=== PATIENT | female | born 1965 | race Caucasian/White ===

== ENCOUNTER 2019-04-13 20:25 | Observation (INO) | payer MEDICARE, OTHER ==
[2019-04-13] MEDS ORDERED: Acetaminophen 500 MG TAB ONE (21:23)
[2019-04-13 23:18] VITALS: BMI 31.5
[2019-04-13] MEDS ORDERED: PREGABALIN 200 MG PO SCH (23:45)
[2019-04-13] MEDS ORDERED: tiZANidine HCl 4 MG TAB PO PRN (23:52)
[2019-04-13] MEDS ORDERED: Non-Formulary Item 1 EACH (Acetaminophen With Codeine [Tylenol With Codeine #4] 1 TABLET) PO PRN (23:52)
[2019-04-14] MEDS ORDERED: Pregabalin 75 MG CAP PO SCH ×2 (00:30→21:00)
[2019-04-14 01:11] LABS: Troponin I Less than 0.010 ng/mL (< 0.028)
[2019-04-14] MEDS ORDERED: Amitriptyline HCl 25 MG TAB PO SCH ×2 (01:15→21:00)
[2019-04-14] MEDS ORDERED: Ondansetron PF 4 MG/2 ML Vial IVP PRN (02:55)
[2019-04-14] MEDS ORDERED: Ondansetron ODT 4 MG TAB PO PRN (02:55)
[2019-04-14] MEDS ORDERED: Acetaminophen 650 MG Suppository PR PRN (02:55)
--- NOTE | 2019-04-14 04:28 | HP ---
PRIMARY CARE DOCTOR: Danyelle Orozco. CODE STATUS: Full code. TIME OF EVALUATION: 2:45 a.m. CHIEF COMPLAINT: Chest pain. HISTORY OF PRESENT ILLNESS: This is a 54-year-old female patient, with past medical history of diabetes type 2, hypertension, glaucoma, hyperlipidemia, hep C, RA, chronic back pain, kidney stones, left kidney tumor, left breast tumor, lymph node tumor, came to the hospital after having chest pain that was in the left shoulder with no clear triggers, no alleviating factors. Pain is 5/10, might become severe when is on, it just get better by itself. No significant symptoms associated. REVIEW OF SYSTEMS: CONSTITUTIONAL: No fever, chills, or generalized weakness. RESPIRATORY: No cough, sputum production, or shortness of breath. CARDIOVASCULAR: Chest pain. No palpitation. GASTROINTESTINAL: No nausea. No vomiting, diarrhea, or abdominal pain. 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 GENITOURINARY: No burning on urination. EXTREMITIES: No leg swelling. All other systems were reviewed and negative except for the findings mentioned above. PAST MEDICAL HISTORY: Positive for the findings mentioned in the HPI. PAST SURGICAL HISTORY: Eye surgery x3, rectocele repair, appendectomy, carpal tunnel syndrome, cholecystectomy, hysterectomy, back surgery x4, left breast tumor, several benign tumors, tonsillectomy, left eye surgery, anal surgery. PSYCHIATRIC HISTORY: Includes previous inpatient psych admissions due to anxiety, depression. The patient has bipolar. FAMILY HISTORY:Reviewed and non contributory for current presentation. SOCIAL HISTORY: No alcohol, no drugs. The patient smokes on a daily basis, trying to quit. FAMILY HISTORY: Sister has CHF. KNOWN ALLERGIES: Clindamycin, erythromycin, eszopiclone, indomethacin, Latuda, lurasidone, penicillin, mirtazapine, zolpidem. REPORTED MEDICATIONS: 1. Lyrica. 2. Latanoprost. 3. Pravastatin. 4. Amitriptyline. 5. Hydrochlorothiazide. PHYSICAL EXAMINATION: VITAL SIGNS: Blood pressure 137/97 with heart rate 66, respiratory rate was 18, temperature 98.6. Pain was 8/10. Oxygen saturation was 97 on room air. GENERAL APPEARANCE: The patient is alert, oriented, no acute distress. HEENT: Eyes normal conjunctivae. Moist oral mucosa. Anicteric. No JVD. RESPIRATORY: Bilateral air entry. No rales. No wheezes. Symmetric expansion. CARDIOVASCULAR: Normal rate, regular rhythm. No murmurs. No gallop. No edema. ABDOMEN: Soft. Normal bowel sounds. MUSCULOSKELETAL: Baseline range of motion and tenderness. SKIN: Warm, intact. No pallor. No rash. No redness. Capillary refill seems to be intact. NEURO: No evidence of any new focal weakness. Cranial nerves seems to be intact. PSYCH: The patient is in good mood. No anxiety. Optimal judgment. IMAGING STUDIES: EKG was reviewed. The patient has normal sinus rhythm with a rate of 65. Conduction is normal. ST-segment normal. Low-voltage QRS. Wrist x- ray was reviewed. The patient has no acute osseus abnormalities and chest x-ray was reviewed. The patient has no acute findings. LABORATORY DATA: Troponin was negative x2. Hematology; white count 6.4, hemoglobin 17.3, MCV 88.4, platelet count 183. Chemistry; sodium 142, potassium 3.9, chloride 106, carbon dioxide 23, anion gap 17, BUN 17, creatinine 0.97, GFR 59, glucose 112. LFTs were negative. Urine was done and white count was not reported positive. Drug screen was not done. ASSESSMENT AND PLAN: The patient will be placed in the hospital with following medical problems. 1. Chest pain, rule out acute coronary syndrome. The patient has chest pain in the left shoulder that used to be atypical. Given risk factors, we will do stress test in the morning if workup is negative overnight. Further treatment depending on stress test result. 2. History of psychiatric problems. The patient seems to be stable. This is chronic. No need for any acute intervention at this point. 3. Deep venous thrombosis prophylaxis. 4. Hyperlipidemia. Low-cholesterol diet is advised. Reconcile home medications. 5. Controlled diabetes, blood sugar 112. We will place the patient on sliding scale for optimal control. Job ID: [id number] [facility]
[2019-04-14 06:44] LABS: Anion Gap 12 mmol/L (10-20); BUN (Urea Nitrogen) 19 mg/dL (9.8-20.1); Calc. Creatinine Clearance 103 mL/min (70-130); Calcium 10.1 mg/dL (7.8-10.44); Carbon Dioxide 26 mmol/L (22-29); Chloride 106 mmol/L (98-107); Estimated GFR-MDRD 71; Glucose 99 mg/dL (70-105); Potassium 4.2 mmol/L (3.5-5.1); Sodium 140 mmol/L (136-145)
[2019-04-14 06:50] LABS: Troponin I Less than 0.010 ng/mL (< 0.028)
[2019-04-14] MEDS: Acetaminophen 325 MG TAB PO PRN ×2 (08:20→18:17)
[2019-04-14] MEDS: Pregabalin 75 MG CAP PO SCH (08:21)
[2019-04-14] MEDS: Enoxaparin Sodium 40 MG/0.4 ML SYRINGE SC SCH (08:21)
[2019-04-14] MEDS ORDERED: Enoxaparin Sodium 40 MG/0.4 ML SYRINGE SC SCH (09:00)
--- NOTE | 2019-04-14 11:29 | PDOC.HOSPP ---
- Subjective Encounter Date: 04/14/19 Encounter Time: 11:26 Subjective: Patient states she continues with pain in left shoulder. States her pain will occasionally radiate into the left side of her chest. Reports this is ongoing for the last month, worse in the last week. She is concerned that this is due to the previous cervical spine fusion she had. Occasionally she experiences pain in her right shoulder. Denies any trauma or injuries. Does not perform any strenuous activity at home. Unsure what may have started it. Denies any central chest pain or shortness of breath. Her biggest complaint is uncontrolled shoulder pain. She is on muscle relaxants and tylenol #4 which no longer helps. - Objective Vital Signs & Weight: Vital Signs (12 hours) Temp Pulse Resp BP BP Pulse Ox 04/14/19 07:40 97.9 F 63 20 177/97 H 97 04/14/19 04:23 97.5 F L 70 17 131/82 97 04/13/19 23:45 62 174/90 H Weight Weight 189 lb 8 oz I&O: 04/13/19 04/14/19 04/15/19 06:59 06:59 06:59 Intake Total 120 Output Total 300 Balance -180 Result Diagrams: 04/14/19 05:49 Additional Labs: Accuchecks 04/13/19 23:39 POC Glucose 102 ROS - Review of Systems Constitutional: denies: fever, chills, sweats, weakness, malaise, other Respiratory: denies: cough, dry, shortness of breath, hemoptysis, SOB with excertion, pleuritic pain, sputum, wheezing Cardiovascular: reports: chest pain (left anterior chest pain radiating from shoulder, noted swelling which has improved) Gastrointestinal: denies: nausea, vomitting, abdominal pain, diarrhea, constipation, melena, hematochezia, other Genitourinary: denies: dysuria, frequency, incontinence, hematuria, retention, other Musculoskeletal: reports: neck pain (chronic, unchanged), shoulder pain (left shoulder x 1 month, worse in the last week, no brusing). denies: arm pain, back pain, hand pain, leg pain, foot pain, other Skin: denies: rash, lesions, other Neurological: denies: weakness, numbness, incoordination, change in speech, confusion, seizures, other - Medication Medications: Active Medications Generic Name Dose Route Start Last Admin Trade Name Freq PRN Reason Stop Dose Admin Acetaminophen 650 mg 04/14/19 02:55 04/14/19 08:20 Tylenol PO 650 mg Q4H PRN Administration Headache/Fever/Mild Pain (1-3) Enoxaparin Sodium 40 mg 04/14/19 09:00 04/14/19 08:21 Lovenox SC Not Given 0900 SHANE Pregabalin 150 mg 04/14/19 09:00 04/14/19 08:21 Lyrica PO 150 mg QAM SHANE Administration Tizanidine HCl 4 mg 04/13/19 23:52 04/14/19 00:40 Zanaflex PO 4 mg TIDPRN PRN Administration Muscle Spasm - Exam NAD, awake alert General - other findings: appears irritated she states due to discomfort Eye: PERRL, anicteric sclera ENT: normocephalic atraumatic, no oropharyngeal lesions, moist mucosa Neck: supple, symmetric, no lymphadenopathy Heart: RRR, no murmur, normal peripheral pulses Respiratory: CTAB, no wheezes, no rales, no ronchi, normal chest expansion, no tachypnea Gastrointestinal: soft, non-tender, non-distended, normal bowel sounds, no palpable masses, no guarding, no rigidity Extremities: no cyanosis, no clubbing, no edema Extremeties - other findings: Tenderness with palpation to left anterior shoulder/ left anterior chest Skin: normal turgor, no lesions, no rashes Neurological: CN's grossly intact, normal sensation to touch, no weakness, no focal deficits Musculoskeletal: normal tone (good strength but increased pain with abduction/ adduction of shoulder joint against resistance), normal strength Hosp A/P (1) Left shoulder pain Code(s): M25.512 - PAIN IN LEFT SHOULDER Status: Acute Plan: MRI C-spine/Left shoulder. Pain does not appear to be cardiac in nature. Per Dr. Spencer who is in agreement, we have cancelled Exercise Treadmill Stress Test. EKG unremarkable, troponins negative x 3. (2) DM type 2 (diabetes mellitus, type 2) Status: Chronic (3) HTN (hypertension) Code(s): I10 - ESSENTIAL (PRIMARY) HYPERTENSION Status: Chronic Plan: Resume home medications and monitor BP. (4) HLD (hyperlipidemia) Code(s): E78.5 - HYPERLIPIDEMIA, UNSPECIFIED Status: Chronic Plan: Resume home medications. (5) CKD (chronic kidney disease) stage 2, GFR 60-89 ml/min Code(s): N18.2 - CHRONIC KIDNEY DISEASE, STAGE 2 (MILD) Status: Chronic
[2019-04-14] MEDS: Amlodipine 10 MG TAB PO SCH ×2 (12:51→13:17)
--- NOTE | 2019-04-14 16:42 | MRI ---
MRI CERVICAL SPINE: INDICATIONS: Neck pain. History of cervical fusion. FINDINGS: The cervical vertebrae maintain height and alignment. Degenerative disk changes and loss of disk spa ce are noted at C5-C6. The other disk spaces are maintained. No significant disk bulge or spondylosis seen at C2-C3, C3-C4, or C4-C5. Foramina appear patent at t hese levels. At C5-C6, there is posterior disk bulge and spondylitic change, which abut the anterior cord. There is right foraminal encroachment due to disk and uncinate hypertrophy. At C6-C7, mild disk bulge and spondylosis flatten the thecal sac; however, anterior subarachnoid spac e is preserved. Foramina appear patent. Cord signal appears normal. IMPRESSION: Degenerative disk and endplate changes at C5-C6 with posterior disk bulge and spondylosis abutting th e cord and encroaching into the right foramina, as noted above. POS: TPC
[2019-04-14] MEDS ORDERED: traMADol HCl 50 MG TAB PO SCH (16:45)
[2019-04-14] MEDS: Acetaminophen/Codeine 30-300mg Tablet PO PRN ×2 (17:22→21:27)
--- NOTE | 2019-04-14 18:53 | MRI ---
MRI LEFT SHOULDER WITHOUT CONTRAST: HISTORY: Pain. COMPARISON: None. FINDINGS: Exam limited to motion artifact. Biceps tendon: Mild intraarticular tendinosis and partial tearing. Labrum: There is a tear of the superior labrum at the level of the biceps labral expansion. Rotator cuff: There is full-thickness tear at the anterior 1 cm fibers of the supraspinatus tendon f rom the footprint, with bridging granulation and scar in situ. Extensive tendinosis of the posterior fibers. Mild bursal surface fraying of the infraspinatus tendon. Bones: Mild degenerative disease of the acromioclavicular joint. There is undersurface heel osteoph yte narrowing in the subacromial space. Soft tissues: Normal appearance at the rotator interval. No significant adenopathy. Muscles: Muscle signal and bulk are normal. Moderate subacromial subdeltoid bursal effusion. IMPRESSION: 1. Tear of the superior labrum at the level of the biceps labral expansion. 2. Although limited to motion artifact, there was felt to be a full-thickness tear of the anterior 1 cm leading edge, supraspinatus tendon, at the footprint, with bridging scar in situ. 3. Undersurface keel osteophyte narrowing the subacromial space with bursal surface fraying supraspi natus tendon. POS: OFF
[2019-04-14] MEDS ORDERED: Simvastatin 20 MG TAB PO SCH (21:00)
[2019-04-15 08:40] VITALS: TEMP 98.2
[2019-04-15] MEDS ORDERED: Amlodipine 5 MG TAB PO SCH (09:00)
[2019-04-15] MEDS ORDERED: Atenolol 50 MG TAB PO SCH (09:00)
[2019-04-15] MEDS: Enoxaparin Sodium 40 MG/0.4 ML SYRINGE SC SCH (12:42)
[2019-04-15 12:43] VITALS: BP 153/96
[2019-04-15] MEDS: Pregabalin 75 MG CAP PO SCH (12:44)
[2019-04-15] MEDS: Acetaminophen/Codeine 30-300mg Tablet PO PRN (12:45)
--- NOTE | 2019-04-15 13:50 | NM ---
Radionucleotide stress only myocardial perfusion scan with CT attenuation correction and SPECT imagin g Left ventricular wall motion evaluation and ejection fraction HISTORY: Chest pain. FINDINGS: Adenosine protocol. Homogeneous uptake of radiotracer throughout the left ventricular myoca rdium. No focal perfusion defect or reversibility. QGS analysis of gated SPECT images shows no focal area of ejection fraction calculated at 76%. IMPRESSION: Normal myocardial perfusion stress only exam. Normal LVEF.
[2019-04-15] MEDS ORDERED: ADENOSINE 60 MG/20 ML VIAL ONE (14:02)
--- NOTE | 2019-04-16 13:27 | DIS ---
DATE OF ADMISSION: 04/13/2019 DATE OF DISCHARGE: 04/15/2019 CONSULTING PHYSICIAN: None. DISCHARGE DIAGNOSES: 1. Musculoskeletal chest/left shoulder pain. 2. Rotator cuff tear. 3. Posterior disk bulge at C5-C6 with spondylosis abutting the cord and encroaching the right foramina; however, subarachnoid space preserved. No neuro deficits. 4. Hyperlipidemia. 5. Diabetes mellitus. HOSPITAL COURSE: Ms. Horton is a 54-year-old woman, who presented with complaints of left anterior chest pain and left shoulder pain, which has been ongoing for the last month, progressively worsening. She was tender to palpation on examination. She was referred for ACS rule out and underwent laboratory studies including cardiac enzymes, which were negative and an EKG which was unremarkable. She did undergo a stress test, which was normal. She had an EF of 76%. The patient did obtain imaging of the cervical spine and left shoulder, which demonstrated a posterior disk bulge at C5-C6 with degenerative disk and endplate changes. There was spondylosis abutting the cord and encroaching into the right foramina, but anterior subarachnoid space since it being preserved and foramina appeared patent. The patient had no neuro deficits on exam. On the MRI of the left shoulder, she was noted to have a tear of the rotator cuff with extensive tendinosis of the posterior fibers and mild bursal surface fraying of the infraspinatus tendon. She was advised PT as an outpatient and would benefit from referral to Orthopedics. The patient was medically cleared for discharge home and advised to see her primary care physician for further management of her pain and referrals. The patient was seen and examined on the day of discharge. CONDITION: Stable. ACTIVITY: As tolerated. DIET: Heart healthy. DISCHARGE MEDICATIONS: The patient advised to resume her regular home medications. No new prescriptions given. FOLLOWUP: The patient advised to follow up with her primary care physician within 1 week. DISPOSITION: The patient medically cleared for discharge home on 04/15/2019. The patient is seen by Dr. Spencer, who agrees with plan of care as described above. Job ID: [id number]
== END 2019-04-15 17:00 | disposition home or self-care (01) ==
LOC: ERS 20:25 → 2SW 21:30
PROVIDERS: ADMIT Hospitalist; ATTEND Hospitalist
DX: R07.89 Other chest pain (principal); M25.512 Pain in left shoulder; M75.122 Complete rotator cuff tear or rupture of left shoulder, not specified as traumatic; M50.222 Other cervical disc displacement at C5-C6 level; M47.812 Spondylosis without myelopathy or radiculopathy, cervical region; E78.5 Hyperlipidemia, unspecified; I12.9 Hypertensive chronic kidney disease with stage 1 through stage 4 chronic kidney disease, or unspecified chronic kidney disease; E11.22 Type 2 diabetes mellitus with diabetic chronic kidney disease; N18.2 Chronic kidney disease, stage 2 (mild); M06.9 Rheumatoid arthritis, unspecified; F41.9 Anxiety disorder, unspecified; F31.9 Bipolar disorder, unspecified; F17.210 Nicotine dependence, cigarettes, uncomplicated; Z98.1 Arthrodesis status; Z88.0 Allergy status to penicillin; Z88.1 Allergy status to other antibiotic agents; Z88.6 Allergy status to analgesic agent; Z88.8 Allergy status to other drugs, medicaments and biological substances; Z79.2 Long term (current) use of antibiotics; Z79.899 Other long term (current) drug therapy
CPT/HCPCS: 72141; 73221; 78452; 80048; 82962; 84484 ×3; 93005; 93017; 99285; A9500; G0378 ×4; 36415; 36416

== ENCOUNTER 2020-02-06 15:26 | Emergency (ER) | payer MEDICARE, OTHER ==
--- NOTE | 2020-02-06 16:34 | RAD ---
Chest AP view INDICATION: Abdominal pain and vomiting COMPARISON: April 13, 2019 FINDINGS: Lungs: No definite consolidation, pleural effusion or pneumothorax is evident. Cardiac silhouette: The cardiomediastinal silhouette appears within normal limits. Pulmonary vasculature: Normal Pleural spaces: No pleural effusion or pneumothorax is demonstrated. Upper abdomen: No abnormality seen. Osseous structures: No acute osseous abnormality. Postsurgical change of a left-sided rotator cuff r epair. Additional findings: None. IMPRESSION: No acute cardiopulmonary abnormality.
[2020-02-06] MEDS ORDERED: Morphine 4 MG/ML VIAL ONE (16:38)
== END 2020-02-06 19:25 | disposition home or self-care (01) ==
LOC: ERS 15:26
DX: N39.0 Urinary tract infection, site not specified (principal); Z20.828 Contact with and (suspected) exposure to other viral communicable diseases; E11.9 Type 2 diabetes mellitus without complications; I10 Essential (primary) hypertension; E78.5 Hyperlipidemia, unspecified; M06.9 Rheumatoid arthritis, unspecified; F41.9 Anxiety disorder, unspecified; F17.210 Nicotine dependence, cigarettes, uncomplicated; F31.9 Bipolar disorder, unspecified; Z79.899 Other long term (current) drug therapy
CPT/HCPCS: 71045; 83605; 96374; J2270